=== PATIENT | male | born 1955 | race Caucasian/White ===

== ENCOUNTER 2017-04-15 07:52 | Inpatient (IN) | payer BC, OTHER ==
[2017-04-15] VITALS (18 sets, daily range): BP systolic 108–180; BP diastolic 67–93; PULSE 46–66; RESP 13–20; TEMP 97.4–98.5; O2SAT 96–99
[~2017-04-15] VITALS: Ht 180.3 cm; Wt 108.0 kg
[~2017-04-15 07:52] MED LIST: CELE200 PO; CLOP75 PO; FISH1000 PO; LISI10TA PO; METO50TA PO; OMEP20CA5 PO; SAW500CA6 PO; SIMV40TA PO
[2017-04-15] MEDS ORDERED: METO25TA3 PO (08:14)
[2017-04-15] MEDS ORDERED: PLAV75TA29 PO (08:14)
[2017-04-15] MEDS ORDERED: FISHCAP4 PO (08:14)
[2017-04-15] MEDS ORDERED: LISI10TA3 PO (08:14)
[2017-04-15] MEDS ORDERED: ZOCO40TA PO (08:14)
[2017-04-15] MEDS ORDERED: ASPI81CH PO (08:14)
[2017-04-15] MEDS ORDERED: ASPIRIN 325 MG TAB PO ONE (08:30)
[2017-04-15] MEDS ORDERED: SODIUM CHLORIDE 0.9% FLUSH 10 ML FLUSH IVF PRN (08:30)
[2017-04-15 08:36] LABS: AUTOMATED NEUTROPHIL # 4.4 TH/MM3 (1.8-7.7); BASOPHIL # 0.1 TH/MM3 (0-0.2); BASOPHIL % 1.2 % (0.0-2.0); EOSINOPHIL # 0.2 TH/MM3 (0-0.4); EOSINOPHIL % 2.3 % (0.0-4.0); HEMATOCRIT 48.1 % (39.0-51.0); HEMO FLAGS DIFF FINAL; LYMPH % 24.5 % (9.0-44.0); LYMPHOCYTE # 1.7 TH/MM3 (1.0-4.8); MEAN CELL VOLUME 87.2 FL (80.0-100.0); MEAN CORPUSCULAR HGB CONC 34.3 % (32.0-36.0); MONO % 8.4 % (0.0-8.0); NEUT % 63.6 % (16.0-70.0); PLATELET COUNT 204 TH/MM3 (150-450); RED BLOOD COUNT 5.51 MIL/MM3 (4.50-5.90); WHITE BLOOD COUNT 6.9 TH/MM3 (4.0-11.0)
[2017-04-15] MEDS ORDERED: HEPARIN SODIUM - IV 10,000 UNITS/10 ML VIAL IV PUSH ONE (08:45)
[2017-04-15] MEDS ORDERED: NITROGLYCERIN 2% OINT 1 GM PACKET TOPICAL ONE (08:45)
[2017-04-15 08:48] LABS: APTT (PATIENT) 27.4 SEC (24.3-30.1); PROTHROMBIN TIME - PATIENT 11.3 SEC (9.8-11.6)
[2017-04-15 08:53] LABS: ALT (GPT) 20 U/L (12-78); ANION GAP 5 MEQ/L (5-15); AST (GOT) 10 U/L (15-37); BICARBONATE 24.7 MEQ/L (21.0-32.0); BLOOD UREA NITROGEN 11 MG/DL (7-18); CHLORIDE 108 MEQ/L (98-107); GLOMERULAR FILTRATION RATE 92 ML/MIN (>89); MAGNESIUM 1.9 MG/DL (1.5-2.5); POTASSIUM 4.2 MEQ/L (3.5-5.1); SODIUM (NA) 138 MEQ/L (136-145)
[2017-04-15 08:56] LABS: ALKALINE PHOSPHATASE 84 U/L (45-117); TOTAL BILIRUBIN ADULT 0.7 MG/DL (0.2-1.0)
[2017-04-15 09:03] LABS: CREATINE KINASE 55 U/L (39-308)
--- NOTE | 2017-04-15 09:12 | RADRPT ---
EXAM DATE/TIME: 04/15/2017 08:58 [place] COMPARISON: CHEST SINGLE AP, January 21, 2011, 11:23. INDICATIONS : Chest pain. MEDICAL HISTORY : Myocardial infarction. SURGICAL HISTORY : Coronary artery stent. ENCOUNTER: Initial ACUITY: 1 day PAIN SCORE: 4/10 LOCATION: Left lower chest FINDINGS: A single view of the chest demonstrates the lungs to be symmetrically aerated without evidence of mas s, infiltrate or effusion. The cardiomediastinal contours are unremarkable. Osseous structures are intact. CONCLUSION: 1. No acute abnormality or significant interval change. Salvador Robins MD on April 15, 2017 at 9:11 Board Certified Radiologist. This report was verified electronically.
[2017-04-15] MEDS: HEPARIN-D5W 25,000 U/250 ML 250 ML IV PRN (09:17)
--- NOTE | 2017-04-15 09:55 | PD ---
HPI Chief Complaint: Medical Clearance Time Seen by Provider: 08:21 Travel History International Travel<30 days: No Contact w/Intl Traveler<30days: No Traveled to known affect area: No History of Present Illness HPI 61-year-old male patient with history of high cholesterol, hypertension, previous OR, follows up with , presents to the ER today because of he woke up not feeling well, nauseous, felt like he had reflux. He has had similar symptoms in the past week and had been seen by his salon customer experience specialist PA on , and they were trying to get him set up with further stress testing as an outpatient. He denies any current chest pains or shortness of breath. He states he was prescribed nitroglycerin but did not take it. Modifying Factors: None Associated Signs & Symptoms: Nausea, not feeling well, lightheaded Risk Factors: Cardiac history PFSH Past Medical History Arthritis: Yes Cardiovascular Problems: Yes High Cholesterol: Yes (H/O) Diminished Hearing: No GERD: Yes Hypertension: Yes Musculoskeletal: Yes Tetanus Vaccination: > 5 Years Influenza Vaccination: No Past Surgical History Abdominal Surgery: Yes (HERNIA REPAIR) Cardiac Surgery: Yes (STENTS) Family History Family Myocardial Infarction: Yes (FATHER HAD FIRST OR IN HIS FIFTIES AND A SECOND IN HIS SIXTIES) Social History Alcohol Use: Yes (WEEKLY) Tobacco Use: No (QUIT 28 YEARS AGO) Substance Use: No Allergies-Medications (Allergen,Severity, Reaction): Coded Allergies: No Known Allergies (Verified , 04/15/17) Reported Meds & Prescriptions Reported Meds & Active Scripts Active Reported Fish Oil + D3 (Fish Oil-Cholecalciferol) 1,200-1,000 Mg-Unit Cap 1 Cap PO DAILY Aspirin 81 Mg Chew 81 Mg PO DAILY Zocor (Simvastatin) 40 Mg Tab 40 Mg PO DAILY Lisinopril 10 Mg Tab 10 Mg PO DAILY Plavix (Clopidogrel Bisulfate) 75 Mg Tab 75 Mg PO DAILY Metoprolol Tartrate 25 Mg Tab 25 Mg PO DAILY Review of Systems Except as stated in HPI: all other systems reviewed are Neg Physical Exam Narrative GENERAL: Well-developed middle age white male patient currently in mild distress. Awake and oriented 3. SKIN: Focused skin assessment: Diaphoretic. HEAD: Atraumatic. Normocephalic. EYES: Pupils equal and round. No scleral icterus. No injection or drainage. ENT: No nasal bleeding or discharge. Mucous membranes pink and moist. NECK: Trachea midline. No JVD. CARDIOVASCULAR: Regular rate and rhythm. No murmur appreciated. Pulses are present and equal bilaterally. RESPIRATORY: No accessory muscle use. Clear to auscultation. Breath sounds equal bilaterally. GASTROINTESTINAL: Abdomen soft, non-tender, nondistended. Hepatic and splenic margins not palpable. MUSCULOSKELETAL: No obvious deformities. No clubbing. No cyanosis. No edema. NEUROLOGICAL: Awake and alert. No obvious cranial nerve deficits. Motor grossly within normal limits. Normal speech. PSYCHIATRIC: Appropriate mood and affect; insight and judgment normal. Data Data Last Documented VS Vital Signs Date Time Temp Pulse Resp B/P (MAP) Pulse Ox O2 Delivery O2 Flow Rate FiO2 04/15/17 09:28 97.9 48 17 116/69 (85) 98 Room Air Orders Orders Electrocardiogram (04/15/17 ) Electrocardiogram (04/15/17 08:21) Ckmb (Isoenzyme) Profile (04/15/17 08:21) Complete Blood Count With Diff (04/15/17 08:21) Comprehensive Metabolic Panel (04/15/17 08:21) Magnesium (Mg) (04/15/17 08:21) Prothrombin Time / Inr (Pt) (04/15/17 08:21) Act Partial Throm Time (Ptt) (04/15/17 08:21) Troponin I (04/15/17 08:21) Chest, Single Ap (04/15/17 08:21) Ecg Monitoring (04/15/17 08:21) Bilateral Bp Monitoring (04/15/17 08:21) Iv Access Insert/Monitor (04/15/17 08:21) Oximetry (04/15/17 08:21) Oxygen Administration (04/15/17 08:21) Sodium Chloride 0.9% Flush (Ns Flush) (04/15/17 08:30) Aspirin (Aspirin) (04/15/17 08:30) Nitroglycerin 2% Oint (Nitroglycerin 2% (04/15/17 08:45) Heparin Inj (Heparin Inj) (04/15/17 08:45) Heparin Inj (Heparin Inj) (04/15/17 14:45) Heparin Inj (Heparin Inj) (04/15/17 14:45) Heparin-D5w 25,000 U/250 Ml (Heparin-D5w (04/15/17 08:45) Cbc No Diff, Includes Plts (04/15/17 08:32) Cbc No Diff, Includes Plts (04/18/17 06:00) Act Partial Throm Time (Ptt) (04/15/17 15:32) Occult Blood (Hemoccult) Stool (04/15/17 08:32) Labs Laboratory Tests Test 04/15/17 08:25 White Blood Count 6.9 TH/MM3 Red Blood Count 5.51 MIL/MM3 Hemoglobin 16.5 GM/DL Hematocrit 48.1 % Mean Corpuscular Volume 87.2 FL Mean Corpuscular Hemoglobin 30.0 PG Mean Corpuscular Hemoglobin Concent 34.3 % Red Cell Distribution Width 13.0 % Platelet Count 204 TH/MM3 Mean Platelet Volume 10.3 FL Neutrophils (%) (Auto) 63.6 % Lymphocytes (%) (Auto) 24.5 % Monocytes (%) (Auto) 8.4 % Eosinophils (%) (Auto) 2.3 % Basophils (%) (Auto) 1.2 % Neutrophils # (Auto) 4.4 TH/MM3 Lymphocytes # (Auto) 1.7 TH/MM3 Monocytes # (Auto) 0.6 TH/MM3 Eosinophils # (Auto) 0.2 TH/MM3 Basophils # (Auto) 0.1 TH/MM3 CBC Comment DIFF FINAL Differential Comment Prothrombin Time 11.3 SEC Prothromb Time International Ratio 1.0 RATIO Activated Partial Thromboplast Time 27.4 SEC Blood Urea Nitrogen 11 MG/DL Creatinine 0.85 MG/DL Random Glucose 111 MG/DL Total Protein 6.8 GM/DL Albumin 3.4 GM/DL Calcium Level 8.1 MG/DL Magnesium Level 1.9 MG/DL Alkaline Phosphatase 84 U/L Aspartate Amino Transf (AST/SGOT) 10 U/L Alanine Aminotransferase (ALT/SGPT) 20 U/L Total Bilirubin 0.7 MG/DL Sodium Level 138 MEQ/L Potassium Level 4.2 MEQ/L Chloride Level 108 MEQ/L Carbon Dioxide Level 24.7 MEQ/L Anion Gap 5 MEQ/L Estimat Glomerular Filtration Rate 92 ML/MIN Total Creatine Kinase 55 U/L Troponin I LESS THAN 0.02 NG/ML MDM Medical Decision Making Medical Screen Exam Complete: Yes Emergency Medical Condition: Yes Medical Record Reviewed: Yes Interpretation(s) EKG shows sinus bradycardia rate of 50 bpm. Patient has up or pointing ST-T segments in 1, aVL, V2 and V3 which were previously T-wave inversions on previous EKG done on 01/22/11. His T-wave is now down pointing in 3 and aVF which were previously normal. Laboratory Tests Test 04/15/17 08:25 Monocytes (%) (Auto) 8.4 % (0.0-8.0) Random Glucose 111 MG/DL (74-106) Calcium Level 8.1 MG/DL (8.5-10.1) Aspartate Amino Transf (AST/SGOT) 10 U/L (15-37) Chloride Level 108 MEQ/L (98-107) Troponin I LESS THAN 0.02 NG/ML Differential Diagnosis Nausea, lightheadedness, reflux: ACS versus dysrhythmias versus dehydration versus metabolic issues versus STEMI Narrative Course EKG does show some changes compared to 2011 although it is unclear how old these changes may be considering he has had previous OR. There is concern about a new OR but patient is not currently having any chest pains. Changes on EKG did not satisfy STEMI criteria. Case was discussed with who is covering for patient's salon customer experience specialist and he states he would like the patient to be started on nitroglycerin, heparin drip, and admitted medically to the [facility]. Case was then discussed with Dr. Pete for admission. Diagnosis Primary Impression: Symptomatic bradycardia Additional Impression: ST segment changes on electrocardiogram Admitting Information Admitting Physician Requests: Admit Nikunj Carlton MD Apr 15, 2017 09:55
[2017-04-15] MEDS ORDERED: MAGNESIUM HYDROXIDE SUSP 30 ML CUP PO PRN (10:15)
[2017-04-15] MEDS ORDERED: LACTULOSE SYRUP 20 GM/30 ML CUP PO PRN (10:15)
[2017-04-15] MEDS ORDERED: SENNOSIDES 8.6 MG TAB PO PRN (10:15)
[2017-04-15] MEDS ORDERED: NALOXONE HCL 0.4 MG/ML AMP IV PUSH PRN ×2 (10:15→10:30)
[2017-04-15] MEDS ORDERED: ONDANSETRON HCL 4 MG/2 ML VIAL IVP PRN (10:15)
[2017-04-15] MEDS ORDERED: BISACODYL 10 MG SUPP RECTAL PRN (10:15)
[2017-04-15] MEDS ORDERED: SODIUM CHLORIDE 0.9% FLUSH 10 ML FLUSH IV FLUSH PRN (10:15)
[2017-04-15] MEDS ORDERED: HEPARIN SODIUM - IV 10,000 UNITS/10 ML VIAL IV PUSH PRN ×2 (14:45)
[2017-04-15] MEDS: NITROGLYCERIN 2% OINT 1 GM PACKET TOPICAL SCH ×2 (15:45→23:16)
[2017-04-15] MEDS: ACETAMINOPHEN 325 MG TAB PO PRN (15:50)
--- NOTE | 2017-04-15 16:33 | HHI.HP ---
[facility] Service [facility] Primary Care Physician Darien Mcfarlane MD Admission Diagnosis symptomatic bradycardia/EKG changes Diagnoses: Travel History International Travel<30 Days: No Contact w/Intl Traveler <30 Da: No Traveled to Known Affected Are: No History of Present Illness The patient is a very pleasant 61-year-old male with past medical history of hypertension, hyperlipidemia, coronary artery disease with stents placed in [address]Jamidar floyd. The patient presents to the ER today because of he woke up not feeling well, nauseous, felt like he had reflux. He has had similar symptoms in the past week and had been seen by his mud analysis well logging captain PA on , and they were trying to get him set up with further stress testing as an outpatient. He denies any current chest pains or shortness of breath. He states he was prescribed nitroglycerin but did not take it. Says when he had previous MT he felt indigestion as well. He says pain was epigastric nonradiating, associated with cold sweats, nausea. Patient says previous MT presented with epigastric pain as well and he came for further eval. He did not vomit. He reports associated shortness of breath and lightheadedness. No palpitations. Denies cough, fever or chills. No wheezing. No diarrhea or constipation. Review of Systems Except as stated in HPI: all other systems reviewed are Neg Past Family Social History Past Medical History Hypertension, hyperlipidemia, coronary artery disease with stents placed in 2010 Past Surgical History Cardiac catheterization, bilateral hernia repair Reported Medications Reported Meds & Active Scripts Active Reported Fish Oil + D3 (Fish Oil-Cholecalciferol) 1,200-1,000 Mg-Unit Cap 1 Cap PO DAILY Aspirin 81 Mg Chew 81 Mg PO DAILY Zocor (Simvastatin) 40 Mg Tab 40 Mg PO DAILY Lisinopril 10 Mg Tab 10 Mg PO DAILY Plavix (Clopidogrel Bisulfate) 75 Mg Tab 75 Mg PO DAILY Metoprolol Tartrate 25 Mg Tab 25 Mg PO DAILY Allergies: Coded Allergies: No Known Allergies (Verified , 04/15/17) Family History Positive for heart problems in the family. Father had 2 MIs and a pacemaker placement, first MT was at the age of ~ 60 Social History Quit smoking 30 years ago, used to smoke 1 pack per day for 8 years. Occasional alcohol use. Denies illicit drug use. Physical Exam Vital Signs Vital Signs Date Time Temp Pulse Resp B/P (MAP) Pulse Ox O2 Delivery O2 Flow Rate FiO2 04/15/17 16:10 51 04/15/17 16:10 97.8 54 18 148/84 (105) 97 04/15/17 14:19 54 04/15/17 13:09 51 04/15/17 12:32 97.4 52 18 136/78 (97) 97 04/15/17 12:32 52 04/15/17 12:05 97.8 49 16 114/77 (89) 98 04/15/17 10:52 97.8 48 17 108/67 (81) 99 Room Air 04/15/17 09:28 97.9 48 17 116/69 (85) 98 Room Air 04/15/17 08:25 97.8 49 17 153/93 (113) 97 Room Air 117/72 (87) 04/15/17 08:23 97 Room Air 04/15/17 08:23 17 97 Room Air 04/15/17 08:19 49 17 04/15/17 08:15 46 17 146/85 (105) 97 Room Air 04/15/17 07:53 98.5 62 13 180/89 (119) 96 Physical Exam GENERAL: This is a very pleasant , well-nourished, well-developed patient, in no apparent distress. SKIN: No rashes, ecchymoses or lesions. Cool and dry. HEAD: Atraumatic. Normocephalic. No temporal or scalp tenderness. EYES: Pupils equal round and reactive. Extraocular motions intact. No scleral icterus. No injection or drainage. ENT: Nose without bleeding, purulent drainage or septal hematoma. Throat without erythema, tonsillar hypertrophy or exudate. Uvula midline. Airway patent. NECK: Trachea midline. No JVD or lymphadenopathy. Supple, nontender, no meningeal signs. CARDIOVASCULAR: Regular rate and rhythm without murmurs, gallops, or rubs. RESPIRATORY: Clear to auscultation. Breath sounds equal bilaterally. No wheezes , rales, or rhonchi. GASTROINTESTINAL: Abdomen soft, non-tender, nondistended. No hepato-splenomegaly , or palpable masses. No guarding. MUSCULOSKELETAL: Extremities without clubbing, cyanosis, or edema. No joint tenderness, effusion, or edema noted. No calf tenderness. Negative Homans sign bilaterally. NEUROLOGICAL: Awake and alert. Cranial nerves II through XII intact. Motor and sensory grossly within normal limits. Five out of 5 muscle strength in all muscle groups. Normal speech. Laboratory Laboratory Tests Test 04/15/17 08:25 White Blood Count 6.9 Red Blood Count 5.51 Hemoglobin 16.5 Hematocrit 48.1 Mean Corpuscular Volume 87.2 Mean Corpuscular Hemoglobin 30.0 Mean Corpuscular Hemoglobin Concent 34.3 Red Cell Distribution Width 13.0 Platelet Count 204 Mean Platelet Volume 10.3 Neutrophils (%) (Auto) 63.6 Lymphocytes (%) (Auto) 24.5 Monocytes (%) (Auto) 8.4 Eosinophils (%) (Auto) 2.3 Basophils (%) (Auto) 1.2 Neutrophils # (Auto) 4.4 Lymphocytes # (Auto) 1.7 Monocytes # (Auto) 0.6 Eosinophils # (Auto) 0.2 Basophils # (Auto) 0.1 CBC Comment DIFF FINAL Differential Comment Prothrombin Time 11.3 Prothromb Time International Ratio 1.0 Activated Partial Thromboplast Time 27.4 Blood Urea Nitrogen 11 Creatinine 0.85 Random Glucose 111 Total Protein 6.8 Albumin 3.4 Calcium Level 8.1 Magnesium Level 1.9 Alkaline Phosphatase 84 Aspartate Amino Transf (AST/SGOT) 10 Alanine Aminotransferase (ALT/SGPT) 20 Total Bilirubin 0.7 Sodium Level 138 Potassium Level 4.2 Chloride Level 108 Carbon Dioxide Level 24.7 Anion Gap 5 Estimat Glomerular Filtration Rate 92 Total Creatine Kinase 55 Troponin I LESS THAN 0.02 Result Diagram: 04/15/1782404/15/17824 Imaging Last Impressions Chest X-Ray 04/15/17820 Signed Impressions: Service Date/Time: Saturday, April 15, 2017 08:58 - CONCLUSION: 1. No acute abnormality or significant interval change. MD Sandra Villasenor VTE Risk Assessment Sandra VTE Risk Assessment: Mod/High Risk (score >= 2) Olayinkarini Risk Assessment Model Point Value = 1 Point Value = 2 Point Value = 3 Point Value = 5 Age 41-60 Minor surgery BMI > 25 kg/m2 Swollen legs Varicose veins or History of unexplained or recurrent spontaneous Oral contraceptives or hormone replacement Sepsis (< 1 month) Serious lung disease, including pneumonia (< 1 month) Abnormal pulmonary function Acute myocardial infarction Congestive heart failure (< 1 month) History of inflammatory bowel disease Medical patient at bed rest Age 61-74 Arthroscopic surgery Major open surgery (> 45 min) Laparoscopic surgery (> 45 min) Malignancy Confined to bed (> 72 hours) Immobilizing plaster cast Central venous access Age >= 75 History of VTE Family history of VTE Factor V Leiden Prothrombin 45280M Lupus anticoagulant Anticardiolipin antibodies Elevated serum homocysteine Heparin-induced thrombocytopenia Other congenital or acquired thrombophilia Stroke (< 1 month) Elective arthroplasty Hip, pelvis, or leg fracture Acute spinal cord injury (< 1 month) Prophylaxis Regimen Total Risk Factor Score Risk Level Prophylaxis Regimen 0-1 Low Early ambulation 2 Moderate Order ONE of the following: *Sequential Compression Device (SCD) *Heparin 5000 units SQ BID 3-4 Higher Order ONE of the following medications: *Heparin 5000 units SQ TID *Enoxaparin/Lovenox 40 mg SQ daily (WT < 150 kg, CrCl > 30 mL/min) *Enoxaparin/Lovenox 30 mg SQ daily (WT < 150 kg, CrCl > 10-29 mL/min) *Enoxaparin/Lovenox 30 mg SQ BID (WT < 150 kg, CrCl > 30 mL/min) AND/OR *Sequential Compression Device (SCD) 5 or more Highest Order ONE of the following medications: *Heparin 5000 units SQ TID (Preferred with Epidurals) *Enoxaparin/Lovenox 40 mg SQ daily (WT < 150 kg, CrCl > 30 mL/min) *Enoxaparin/Lovenox 30 mg SQ daily (WT < 150 kg, CrCl > 10-29 mL/min) *Enoxaparin/Lovenox 30 mg SQ BID (WT < 150 kg, CrCl > 30 mL/min) AND *Sequential Compression Device (SCD) Assessment and Plan Assessment and Plan Symptomatic bradycardia Chest pain rule out acute coronary syndrome Coronary artery disease EKG shows sinus bradycardia rate of 50 bpm. Patient has up or pointing ST-T segments in 1, aVL, V2 and V3 which were previously T-wave inversions on previous EKG done on 01/22/11. His T-wave is now down pointing in 3 and aVF which were previously normal. Changes on EKG did not satisfy STEMI criteria who is covering for Dr Mendes recommends nitroglycerin, heparin drip, and admitted medically to the [facility]. Keep NPO after midnight Plan for cardiac cath in the morning Monitor on telemetry First trop neg, will trend Repeat EKG Hold metoprolol Chronic med problems. HTN, HKD. Restart home meds as appropriately DVT ppx on heparin drip Code Status full code Discussed Condition With patient, nurse, family at bedside, ER physician Physician Certification 2 Midnight Certification Type: Admission for Inpatient Services Order for Inpatient Services The services are ordered in accordance with Medicare regulations or non- Medicare payer requirements, as applicable. In the case of services not specified as inpatient-only, they are appropriately provided as inpatient services in accordance with the 2-midnight benchmark. Estimated LOS (days): 3 days is the estimated time the patient will need to remain in the hospital, assuming treatment plan goals are met and no additional complications. Post-Hospital Plan: Home Marielos Pete MD Apr 15, 2017 16:33
--- NOTE | 2017-04-15 16:37 | MB ---
cc: LAZARO PACHECO DATE OF CONSULTATION 04/15/2017 REASON FOR CONSULTATION Mr. Howe is a 61-year-old white male with a history of coronary artery disease and coronary stenting, previous myocardial infarction, hypertension and dyslipidemia. He presented with nausea. He usually sees Dr. Mendes and was supposed to undergo a stress test. He has not had clear chest pain but felt lightheaded. His symptoms were somewhat similar to his previous [place] symptoms. PAST MEDICAL HISTORY Positive for: 1. Myocardial infarction. 2. Coronary artery disease. 3. Coronary stenting. 4. Hypertension. 5. Dyslipidemia. 6. Gastroesophageal reflux disease. 7. Arthritis. 8. History of hernia repair. MEDICATIONS Include: 1. Fish oil. 2. Baby aspirin. 3. Zocor 40 mg a day. 4. Lisinopril 10 mg a day. 5. Plavix. 6. Metoprolol 25 mg a day. ALLERGIES None. SOCIAL HISTORY The patient does not smoke. He quit smoking 28 weeks ago. He drinks alcohol weekly. He is and accompanied by his . FAMILY HISTORY Positive for heart disease in his father in his 50s. REVIEW OF SYSTEMS Otherwise negative. PHYSICAL EXAMINATION VITAL SIGNS: Blood pressure 136/78, pulse 51 and regular. HEENT: Negative. 2+ carotid upstrokes. No bruits. LUNGS: Clear. HEART: Regular with no murmur, gallop or rub. ABDOMEN: Soft. No bruits. EXTREMITIES: Without edema. 2+ distal pulses. NEUROLOGIC: Grossly nonfocal. LABORATORY DATA EKG was reviewed and showed sinus bradycardia, ____ left ventricular hypertrophy. Nonspecific ST-T changes. Labs, hemoglobin 16.5. Potassium 4.2, creatinine 0.85, AST 10, ALT 20 Troponin less than 0.02. CK 55. DIAGNOSES 1. Unstable angina. 2. Coronary artery disease. 3. Myocardial infarction and coronary stenting. 4. Hypertension. 5. Dyslipidemia. 6. Strong family history of coronary artery disease. DISPOSITION Mr. Howe will be scheduled for cardiac catheterization and coronary intervention if necessary tomorrow. He understands the risks and benefits and wishes to proceed. He and his understand the risks and benefits and wish to proceed. We will continue anticoagulation with heparin, aspirin and Plavix. We will continue aggressive modification of his cardiac risk factors. He will follow up Dr. Mendes, his primary local city driver in the office after discharge. MD SOL Wallace/SERGE /2:20 PM /4:24 PM
[2017-04-15 17:35] LABS: APTT (PATIENT) 32.2 SEC (24.3-30.1)
--- NOTE | 2017-04-15 19:20 | EKG ---
Date Performed: 04/15/2017 Time Performed: 08:15:09 PTAGE: 61 years EKG: SINUS BRADYCARDIA LOW QRS VOLTAGE IN PRECORDIAL LEADS MODERATE VOLTAGE CRITERIA FOR LVH, CO NSIDER NORMAL VARIANT BORDERLINE ECG PREVIOUS TRACING : 01/22/2011 03.23 Compared to prior tracing no significant change DOCTOR: Mp Muñoz Interpretating Date/Time 04/15/2017 19:18:50
[2017-04-15] MEDS: DOCUSATE SODIUM 50 MG/SENNA 8.6 MG TAB PO SCH (21:00)
[2017-04-15] MEDS: CARVEDILOL 3.125 MG TAB PO SCH (23:16)
[2017-04-15] MEDS: SODIUM CHLORIDE 0.9% FLUSH 10 ML FLUSH IV FLUSH SCH (23:27)
[2017-04-16] VITALS (21 sets, daily range): BP systolic 119–142; BP diastolic 67–82; PULSE 50–95; RESP 14–18; TEMP 97.3–98.2; O2SAT 95–98
[2017-04-16 01:28] LABS: APTT (PATIENT) 34.5 SEC (24.3-30.1)
[2017-04-16] MEDS: ACETAMINOPHEN 325 MG TAB PO PRN (05:10)
[2017-04-16] MEDS: HEPARIN-D5W 25,000 U/250 ML 250 ML IV PRN (05:16)
[2017-04-16] MEDS: NITROGLYCERIN 2% OINT 1 GM PACKET TOPICAL SCH ×2 (05:17→14:00)
[2017-04-16 07:04] LABS: AUTOMATED NEUTROPHIL # 3.1 TH/MM3 (1.8-7.7); BASOPHIL # 0.1 TH/MM3 (0-0.2); BASOPHIL % 1.2 % (0.0-2.0); EOSINOPHIL # 0.2 TH/MM3 (0-0.4); HEMATOCRIT 42.4 % (39.0-51.0); HEMO FLAGS DIFF FINAL; LYMPH % 36.8 % (9.0-44.0); LYMPHOCYTE # 2.2 TH/MM3 (1.0-4.8); MEAN CELL VOLUME 86.7 FL (80.0-100.0); MEAN CORPUSCULAR HEMOGLOBIN 30.1 PG (27.0-34.0); MEAN CORPUSCULAR HGB CONC 34.7 % (32.0-36.0); PLATELET COUNT 181 TH/MM3 (150-450); RED BLOOD COUNT 4.89 MIL/MM3 (4.50-5.90); RED CELL DISTRIBUTION WIDTH 13.1 % (11.6-17.2); WHITE BLOOD COUNT 6.1 TH/MM3 (4.0-11.0)
[2017-04-16 07:08] LABS: BICARBONATE 24.8 MEQ/L (21.0-32.0); POTASSIUM 3.7 MEQ/L (3.5-5.1)
[2017-04-16 08:09] LABS: APTT (PATIENT) 64.9 SEC (24.3-30.1)
--- NOTE | 2017-04-16 08:29 | EKG ---
Date Performed: 04/15/2017 Time Performed: 18:18:58 PTAGE: 61 years EKG: Atrial fibrillation Left ventricular hypertrophy Inferior/lateral ST-T changes may be due t o hypertrophy and/or ischemia Abnormal ECG PREVIOUS TRACING : 04/15/2017 08.15 When compared to the prior EKG, the patient does now appear to be in atrial fibrillation. DOCTOR: Junie Keller Interpretating Date/Time 04/16/2017 08:28:18
[2017-04-16] MEDS ORDERED: PRAVASTATIN SOD 80 MG TAB PO SCH (09:00)
[2017-04-16] MEDS ORDERED: LISINOPRIL 10 MG TAB PO SCH (09:00)
[2017-04-16] MEDS: DOCUSATE SODIUM 50 MG/SENNA 8.6 MG TAB PO SCH (09:27)
[2017-04-16] MEDS: SODIUM CHLORIDE 0.9% FLUSH 10 ML FLUSH IV FLUSH SCH (09:28)
[2017-04-16] MEDS: CARVEDILOL 3.125 MG TAB PO SCH (09:28)
--- NOTE | 2017-04-16 10:10 | HHI.PR ---
Subjective Remarks Bradycardic overnight. Patient says she feel lightheaded, however feels improving some. No more nausea, epigastric pain , diaphoresis. Plan for cardiac cath around noon. Objective Vitals Vital Signs Date Time Temp Pulse Resp B/P (MAP) Pulse Ox O2 Delivery O2 Flow Rate FiO2 04/16/17 09:06 50 04/16/17 08:05 52 04/16/17 07:30 97.7 57 14 119/78 (92) 04/16/17 07:30 56 04/16/17 06:00 50 04/16/17 05:00 56 04/16/17 04:00 53 04/16/17 04:00 98.2 52 18 120/76 (91) 96 04/16/17 03:00 52 04/16/17 02:00 52 04/16/17 01:00 54 04/16/17 00:00 57 04/16/17 00:00 97.3 55 16 126/68 (87) 95 04/15/17 23:00 66 04/15/17 22:00 54 04/15/17 21:00 52 04/15/17 20:07 21 04/15/17 20:00 98.5 65 20 128/71 (90) 96 04/15/17 20:00 65 04/15/17 19:00 66 04/15/17 18:08 58 04/15/17 17:05 53 04/15/17 16:55 18 04/15/17 16:10 51 04/15/17 16:10 97.8 54 18 148/84 (105) 97 04/15/17 14:19 54 04/15/17 13:09 51 04/15/17 12:32 97.4 52 18 136/78 (97) 97 04/15/17 12:32 52 04/15/17 12:05 97.8 49 16 114/77 (89) 98 04/15/17 10:52 97.8 48 17 108/67 (81) 99 Room Air I/O 04/15/17 04/15/17 04/15/17 04/16/17 04/16/17 04/16/17 07:00 15:00 23:00 07:00 15:00 23:00 Intake Total 803 ml 480 ml Balance 803 ml 480 ml Intake Oral 720 ml 480 ml IV Total 83 ml # Voids 3 1 # Bowel Movements 1 Result Diagram: 04/16/17 0455 04/16/17 0455 Imaging Last Impressions Chest X-Ray 04/15/17820 Signed Impressions: Service Date/Time: Saturday, April 15, 2017 08:58 - CONCLUSION: 1. No acute abnormality or significant interval change. Salvador Robins MD Objective Remarks GENERAL: This is a very pleasant , well-nourished, well-developed patient, in no apparent distress. CARDIOVASCULAR: Bradycardic. Regular rate and rhythm without murmurs, gallops, or rubs. RESPIRATORY: Clear to auscultation. Breath sounds equal bilaterally. No wheezes , rales, or rhonchi. GASTROINTESTINAL: Abdomen soft, non-tender, nondistended. No hepato-splenomegaly , or palpable masses. No guarding. MUSCULOSKELETAL: Extremities without clubbing, cyanosis, or edema. No joint tenderness, effusion, or edema noted. No calf tenderness. Negative Homans sign bilaterally. NEUROLOGICAL: Awake and alert. Cranial nerves II through XII intact. Motor and sensory grossly within normal limits. Five out of 5 muscle strength in all muscle groups. Normal speech. Procedures cardiac cath 04/16/17 A/P Assessment and Plan Symptomatic bradycardia Chest pain rule out acute coronary syndrome Coronary artery disease. [place] with stent EKG shows sinus bradycardia rate of 50 bpm. Patient has up or pointing ST-T segments in 1, aVL, V2 and V3 which were previously T-wave inversions on previous EKG done on 01/22/11. His T-wave is now down pointing in 3 and aVF which were previously normal. Changes on EKG did not satisfy STEMI criteria who is covering for Dr Mendes recommends nitroglycerin, heparin drip, and admitted medically to the [facility]. Keep NPO after midnight, paln for cardiac cath today around noon Monitor on telemetry Trop neg x 3 Repeat EKG no change Hold metoprolol Chronic med problems. HTN, HKD. Restart home meds as appropriately DVT ppx on heparin drip Discussed Condition With patient, nurse, Dr Velasquez Discharge when cleared by cardiology. Note: discussed with cardiology Dr velasquez after cardiac cath, no stents placed , continue medical management. Will decrease metoprolol to 12.5 mg po bid at discharge. To follow up as OP with his cardiology Dr Mendes Discharge Planning DC home in stable condition. To follow up as OP with PCP and consultants. Activity ad tay as yunior Diet: Healthy heart diet Meds per med reconciliations. Decrease metoprolol to 12.5 mg po bid at discharge . to follow up with his cardiology Dr Mendes as OP. Marielos Pete MD Apr 16, 2017 10:10
[2017-04-16] MEDS ORDERED: HEPARIN-NS/PF INJ 1,000 ML ONE (15:39)
[2017-04-16] MEDS ORDERED: MIDAZOLAM HCL 5 MG/5 ML VIAL ONE (15:39)
--- NOTE | 2017-04-16 15:58 | HHI.DCPOC ---
Discharge Care Plan Goals to Promote Your Health * To prevent worsening of your condition and complications * To maintain your health at the optimal level Directions to Meet Your Goals Take your medications as prescribed Follow your dietary instruction Follow activity as directed Keep your appointments as scheduled Take your immunizations and boosters as scheduled If your symptoms worsen call your PCP, if no PCP go to Urgent Care Center or Emergency Room Smoking is Dangerous to Your Health. Avoid second hand smoke Call the 24-hour hour crisis hotline for domestic abuse at Marielos Pete MD Apr 16, 2017 15:58
[2017-04-16] MEDS ORDERED: HEPARIN SODIUM - IV 10,000 UNITS/10 ML VIAL ONE (16:13)
--- NOTE | 2017-04-16 17:07 | CATHPROC ---
[email or web address] HIS Report Study Information Study Number Admission Scheduled Start Study Start [id number] Apr 15 2017 10:09AM 04/16/2017 Apr 16 2017 3:22PM [place] [facility] Cardiac Catheterization Admit Source Facility Department Transfer in from another acute care facility [facility] - [facility] Physician and Clinical Staff Initial Luciana Blanchard Certified Personal Finance Counselornoreen Pereira RN, Bk Certified Personal Finance CounselorSuzi Guidry RN Recorder Lyndsey Delarosa,RT(R) Scrub Neel Wang RCIS(BS) Procedures Performed Procedure Location (Site) Vessel Name Angiogram LV LV Ventricle Coronary Angiograms LCA Left Coronary Coronary Angiograms RCA Right Coronary L Heart Cath Equipment Time Supervisor Mold Construction Description Size Mfg Part Number Used/Scraped TRANSDUCER, TRPlusBlue SolutionsSRAVAN [id number] 15:23 ANTONIO VIVEROS * Used W/STOCKCOCK *[id number] [id number] *[id number] [id number] *[id number] [id number] *[id number] 15:23 [employer] PACK, CCL CUSTOM * Used *[id number] 15:23 [employer] PACER PEN, SKIN DUAL W/ RULER * Used *[id number] 15:23 [email or web address] WIRE, 3MMJ .035 180CM 180CM Used *[id number] PROBE COVER, STERILE [id number] 15:23 [employer] MEDICAL * Used ULTRASOUND W/ GEL *[id number] 15:23 NAMIC MANIFOLD, 4 PORT * Used *[id number] 15:23 NAMIC TUBING, HIGH PRESSURE 48" 48" Used *[id number] 15:23 [employer]ED OMNIPAQUE, 350 MG, 150ML 150ML [id number] Used [id number] 15:23 [employer] BLANKET,WARM AIR CCL * Used *[id number] 15:23 TERUMO MEDICAL SHEATH, FR5 TERUMO (10CM) FR 5 Used *[id number] History: Current Medications Medication Dosage/Unit Route Frequency Last Date/Time Taken LISINOPRIL ASA PLAVIX Zocor History: Allergies Allergy Reaction No Known Allergies History: Risk Factors Family History of Hypertension Dyslipidemia Previous CT Previous Heart Failure Premature CAD Yes Yes Yes Yes No Prior Valve Prior PCI Prior PCIDate Prior CABG Surgery No Yes 07/15/2010 No Cerebrovascular Peripheral Artery Chronic Lung On Dialysis Diabetes Disease Disease Disease No No No No No History: Symptoms/Diagnosis Selection Items SOB History: Stress Tests Stress or Imaging Studies Performed No History: Other Disease Selection Items CAD Gerd HTN History: Other Current Smoker Method Quit Packs a Day Years Used Pack Years No Cigarettes 30 Years Ago 1 8 8 Labs Hgb (g/dl) Hct (%) WBC (l/cumm) Platelets (thousands) 11.60-17.00 35.00-51.00 4.00-11.00 150.00-450.00 14.7 42.4 6.1 181 Glucose (mg/dl) BUN (mg/dl) Creatinine (mg/dl) BUN:Creatinine (1:x) 74.00-106.00 7.00-18.00 0.50-1.30 10.00-20.00 104 12 0.8 15 Na (meq/l) K (meq/l) 136.00-145.00 3.50-5.10 139 3.7 Troponin I (ng/ml) CPK (u/l) CPK-MB (ng/ML) 0.02-0.05 26.00-308.00 0.50-3.60 0.02 55 Not Drawn Medication Medication Total Dose (Bolus/Oral) Medication Total Dosage/Unit 1% XYLOCAINE 20 mL FENTANYL 50 mcg VERSED 2 mg Medications (Bolus/Oral) Medication Time Given Dosage/Unit Administered By Reason VERSED 04/16/2017 4:01:58 PM 2 mg Suzi Zapien 2 mg VERSED given in lab by Suzi Zapien, LILO in Left Antecubital via Peripheral IV. Ordered by Luciana Choi. FENTANYL 04/16/2017 4:02:20 PM 50 mcg Suzi Zapien 50 mcg FENTANYL given in lab by Suzi Zapien, RN in Left Antecubital via Peripheral IV. Ordered by Luciana Velasquez. 1% XYLOCAINE 04/16/2017 4:23:30 PM 20 mL Luciana Velasquez 20 mL 1% XYLOCAINE given in lab by Luciana Velasquez in Right Groin via Subcutaneous. Ordered by Luciana Orellana. Medication (Drip) Medication Time Given Dosage/Unit Concentration/Unit Diluent (ml) Solution IV Solutions 04/16/2017 3:45:00 PM 50 mL (IV) NaCl .9 IV Solutions given in lab by Suzi Zapien, RN in Left Antecubital via Peripheral IV. Pump/Drip Reyes w using NaCl .9. Ordered by Luciana Velasquez. Initial Case Assessment Cardiovascular HR Rhythm NIBP Chest Pain 57 sr 145/83 0 Edema Present Skin color Skin None Normal Warm Dry Circulatory - Right Pulses Dorsalis Pedis Femoral 2 2 Scale (0,1,2,3,4,d) Circulatory - Left Pulses Dorsalis Pedis Femoral 1 1 Scale (0,1,2,3,4,d) Neurological State Oriented to time-place- Alert Moves all extremities person Respiration - General SpO2 (%) 98 Chronological Log Time Study Chronological Log 15:31:45 Patient arrived via Bed. 15:31:46 Patient Name, D.O.B, / Armband Verified By R.N. 15:31:46 Consent signed by the physician and the patient and verified by the Dental [facility] staff. 15:31:47 Pre-op and post- op instructions given; patient acknowledges understanding of instruction s. 15:31:48 Verbal Stimulation=2 Physical Stimulation=2 Airway=2 Respiration=2 TOTAL=8. (0=absent, 1= limited, 2=present) 15:32:05 Patient has been NPO for More than 6Hrs. 15:32:06 Skin Breakdown- none per pt 15:32:07 Patient Warmer Placed on the Table. 15:32:13 A # 20 IV was noted in the Antecubital (left). Grade = 0 15:32:13 A # 20 IV was noted in the Antecubital (right). Grade = 0 15:32:14 History and physical on the chart or being dictated. Assessment: Initial Case, HR=57 BPM, Rhythm=sr, MNFZ=458/83 mmhg, Chest Pain=0, Edema=None, Col or=Normal, Skin = Warm, Dry Right Pulses: Jean Ped=2, Femoral=2 15:32:15 Left Pulses: Jean Ped=1, Femoral=1 Neurological: State=Alert, Ox3, WHATLEY Respiration: SpO2=98 % Vitals capture started with the following parameters, Patient=Adult, Interval=3 min, Initial Pr fbdcch=098 mmHg, 15:37:57 Deflation Rate=5 mmHg, Cuff placed on Left Arm 15:39:13 Reference ECG taken 15:39:14 HR=58 bpm, VUQI=513/83 mmhg, SpO2=99.0 %, Resp=17 B/min, Camilo=2 15:41:37 HR=62 bpm, QDYF=736/85 mmhg, SpO2=98.0 %, Resp=19 B/min, Camilo=2 15:44:40 HR=60 bpm, UFCZ=421/87 mmhg, SpO2=96.0 %, Resp=18 B/min, Camilo=2 IV Solutions given in lab by Suzi Zapien, LILO in Left Antecubital via Peripheral IV. Pump/Dr ip Flow using NaCl .9. 15:45:00 Ordered by Luciana Velasquez. 15:47:36 HR=67 bpm, JAYM=100/94 mmhg, SpO2=96.0 %, Resp=18 B/min, Camilo=2 15:48:12 Bilateral groins prepped with 2% chlorhexidine, and draped after a 3 minute waiting time. 15:50:36 HR=60 bpm, AMFY=402/96 mmhg, SpO2=98.0 %, Resp=17 B/min, Camilo=2 15:51:47 MD arrived. 15:53:40 HR=62 bpm, OWLS=619/90 mmhg, SpO2=97.0 %, Resp=20 B/min, Camilo=2 15:56:43 HR=61 bpm, UAZT=693/90 mmhg, SpO2=97.0 %, Resp=18 B/min, Camilo=2 15:58:30 Pressure channel 1 zeroed. 15:59:43 HR=55 bpm, HLXW=723/86 mmhg, SpO2=97.0 %, Resp=18 B/min, Camilo=2 16:01:58 2 mg VERSED given in lab by Suzi Zapien, RN in Left Antecubital via Peripheral IV. Orde red by Luciana Velasquez. 50 mcg FENTANYL given in lab by Suzi Zapien, LILO in Left Antecubital via Peripheral IV. Orde red by Eva, 16:02:20 Luciana. 16:02:39 HR=52 bpm, BRUC=325/85 mmhg, SpO2=99.0 %, Resp=15 B/min, Camilo=2 16:05:41 HR=68 bpm, AKKS=356/77 mmhg, SpO2=95.0 %, Resp=15 B/min, Camilo=2 16:08:41 HR=61 bpm, CVWU=494/76 mmhg, SpO2=95.0 %, Resp=23 B/min, Camilo=2 16:11:40 HR=58 bpm, NKCV=250/76 mmhg, SpO2=97.0 %, Resp=12 B/min 16:14:38 HR=61 bpm, GNFI=430/82 mmhg, SpO2=97.0 %, Resp=12 B/min, Camilo=2 16:17:38 HR=63 bpm, MMYW=107/79 mmhg, SpO2=97.0 %, Resp=12 B/min, Camilo=2 16:20:38 HR=63 bpm, FYEV=533/80 mmhg, SpO2=96.0 %, Resp=12 B/min, Camilo=2 Time Out. Correct patient, correct procedure, correct physician, power injector loaded with con trast with surgical team 16:23:07 present. Time Out Concurred by MD and individual staff in procedure. 16:23:24 Case Start 16:23:30 20 mL 1% XYLOCAINE given in lab by Luciana Velasquez in Right Groin via Subcutaneous. Ordered by Luciana Velasquez. 16:23:36 HR=61 bpm, NGZC=720/85 mmhg, SpO2=97.0 %, Resp=18 B/min 16:24:38 Access site was Right Femoral Artery via ultrasound. 16:24:59 A SHEATH, FR5 TERUMO (10CM) FR 5 was advanced into the Fem Art (right) using the P[place]ut[place]o us technique. A PIGTAIL ANG. INFINITI CATHETER FR 5 was advanced over a wire. OMNIPAQUE, 350 MG, 150ML 150ML was used 16:25:39 for injections. 16:26:35 HR=79 bpm, XRTT=141/86 mmhg, SpO2=97.0 %, Resp=14 B/min Recorded Pressure: LV, HR=71, Condition=Condition 1 16:26:40 (Left Ventricle) LV 108/11/12 16:27:25 The LV was injected at 10 cc/sec for a total of 30. OMNIPAQUE, 350 MG, 150ML 150ML used. Recorded Pressure: LV, Ao, HR=63, Condition=Condition 1 16:29:03 (Left Ventricle) LV 120/10/13, (Aorta) Ao 118/69/93 After removing the current catheter a JL 4.0 INFINITI CATHETER FR 5 was advanced over a WIRE, 3 MMJ .035 180CM 16:29:24 180CM. 16:29:37 HR=66 bpm, DPWO=784/85 mmhg, SpO2=98.0 %, Resp=25 B/min 16:30:09 The LCA was injected and visualized at various angles. OMNIPAQUE, 350 MG, 150ML 150ML used . Recorded Pressure: Ao, HR=54, Condition=Condition 1 16:31:10 (Aorta) Ao 114/62/84 16:32:32 Catheter was removed A AR MOD INFINITI CATHETER FR 5 was advanced over a wire. OMNIPAQUE, 350 MG, 150ML 150ML was us ed for 16:32:38 injections. 16:32:41 HR=60 bpm, YAOW=504/77 mmhg, SpO2=98.0 %, Resp=22 B/min 16:33:19 The RCA was injected and visualized at various angles. OMNIPAQUE, 350 MG, 150ML 150ML used . 16:35:00 Case End 16:35:39 HR=74 bpm, NTGQ=257/85 mmhg, SpO2=98.0 %, Resp=18 B/min 16:36:50 Catheter was removed 16:38:44 HR=67 bpm, SMLC=341/82 mmhg, SpO2=99.0 %, Resp=11 B/min 16:39:15 Activated Clotting Time Drawn 16:41:42 HR=75 bpm, HHPT=964/76 mmhg, SpO2=98.0 %, Resp=15 B/min 16:42:32 ACT (Normal Range 90-180) = 128 16:44:40 HR=63 bpm, TRLL=309/81 mmhg, SpO2=97.0 %, Resp=13 B/min 16:47:42 HR=62 bpm, ITEE=914/75 mmhg, SpO2=95 %, Resp=15 B/min 16:49:30 Sheath removed; pressure applied to access site. 16:49:37 No case complications noted. 16:49:42 Cine recording checked. 16:49:45 Bedside Report will be given. 16:49:49 A Left Heart Cath was performed. 16:50:41 HR=76 bpm, LPWB=283/75 mmhg, SpO2=96.0 %, Resp=13 B/min 16:54:18 HR=61 bpm, IHSI=697/83 mmhg, SpO2=95.0 %, Resp=15 B/min 16:56:41 HR=62 bpm, PLBG=773/83 mmhg, SpO2=96.0 %, Resp=25 B/min 16:59:41 HR=68 bpm, IVOC=572/82 mmhg, SpO2=95.0 %, Resp=19 B/min 17:03:18 HR=60 bpm, DUDR=450/83 mmhg, SpO2=97.0 %, Resp=14 B/min 17:03:36 Sterile dressing applied to site 17:08:47 Patient moved to stretcher End Study - Contrast Media Used In Study Contrast Total Opened (mL) Total Used (mL) Total Wasted (mL) Omnipaque 120 120 0 End Study - Maximum Contrast Load Max Contrast Load (mL) 676.1 End Study - Radiation Exposure Fluoro Time (minutes) 1.4 End Study - Patient Disposition Complications Transferred To Interventional Outcome No Telemetry Bed No attempt made
[2017-04-16] MEDS ORDERED: METO25TA3 PO (17:12)
--- NOTE | 2017-04-16 20:56 | MA ---
cc: LUCIANA VELASQUEZ DATE 04/16/2017 INDICATIONS Unstable anginal, class III angina, coronary artery disease with a history of left anterior descending coronary artery stenting. PROCEDURE PERFORMED 1. Retrograde left heart catheterization with left ventriculography and selective coronary angiography. 2. Moderate sedation. ACCESS SITE Right femoral artery using ultrasound guidance MEDICATIONS 1. Versed IV. 2. Fentanyl IV. CONTRAST Omnipaque 120 cc. EQUIPMENT USED 5-[place] pigtail catheter, 5 [place] JL-4 and AR modified coronary artery catheters. COMPLICATIONS None BLOOD LOSS Less than 10 mL. METHOD OF HEMOSTASIS Manual compression. RESULTS HEMODYNAMICS Heart rate 63 beats per minute. Left ventricular end-diastolic pressure 10 mmHg. Left ventricle 120/10 Aorta 120/69/93 LEFT VENTRICULOGRAPHY Ejection fraction 55%. Wall motion normal. No mitral regurgitation seen. LEFT CORONARY ANGIOGRAPHY Left main coronary artery patent. Left anterior descending artery has 20% in stent restenosis in the proximal portion. Mid and distal LAD patent. D-1 patent. D-2 patent. Left circumflex artery has 60% ostial stenosis. OM-1 is a large vessel with 20% proximal stenosis. Ramus intermedius is patent. Right coronary artery is a large, dominant vessel which is patent. PLV 30% stenosis in the mid portion. PDA patent. DIAGNOSES 1. Moderate nonobstructive coronary artery disease. 2. Preserved left ventricular systolic function. DISPOSITION Mr. Howe about his cardiac status. no evidence of significant obstructive coronary artery disease and preserved left ventricular systolic function. Recommend to continue and intensify his medical management including aggressive modification of his cardiac risk factors. He will follow up with Dr. Mendes, his primary network communications engineer, in his office after discharge. Luciana Velasquez MD OSada/KK /4:44 PM /8:35 PM
[2017-04-16] MEDS ORDERED: IOHEXOL 350 MG/ML 50 ML BTL (for Cath Lab) OTHER ONE (22:08)
[2017-04-16] MEDS ORDERED: IOHEXOL 350 MG/ML 100 ML BTL (for Cath Lab) OTHER ONE (22:08)
== END 2017-04-16 22:09 | disposition home or self-care (01) | DRG 287 ==
LOC: NEPE 07:52 → NEDA 10:09 → HCIS 12:20
PROVIDERS: ADMIT Hospitalist; ATTEND Hospitalist
PROC: 4A023N7 Measurement of Cardiac Sampling and Pressure, Left Heart, Percutaneous Approach (ICD-10-PCS; 2017-04-16)
PROC: B2151ZZ Fluoroscopy of Left Heart using Low Osmolar Contrast (ICD-10-PCS; 2017-04-16)
PROC: B2111ZZ Fluoroscopy of Multiple Coronary Arteries using Low Osmolar Contrast (ICD-10-PCS; principal; 2017-04-16 14:30)
DX: I25.110 Atherosclerotic heart disease of native coronary artery with unstable angina pectoris (principal); T82.855A Stenosis of coronary artery stent, initial encounter; R00.1 Bradycardia, unspecified; I10 Essential (primary) hypertension; E78.5 Hyperlipidemia, unspecified; I25.2 Old myocardial infarction; K21.9 Gastro-esophageal reflux disease without esophagitis; M19.90 Unspecified osteoarthritis, unspecified site; Z82.49 Family history of ischemic heart disease and other diseases of the circulatory system; Z87.891 Personal history of nicotine dependence; Z95.5 Presence of coronary angioplasty implant and graft
CPT/HCPCS: 71010; 80048; 80053; 82550; 83735; 84484; 85002; 85025; 85610; 85730; 93005; 93458; 96365; 96375; C1769; C1893; J1644; J2250; J3010; Q9967